=== PATIENT | male | born 1935 | race Caucasian/White ===

== ENCOUNTER 2022-01-31 04:13 | Day surgery (SDC) | payer OTHER ==
[2022-01-27 15:50] VITALS: BMI 25.8
[2022-01-31] MEDS ORDERED: MIDAZOLAM HCL 2 MG/2 ML SINGLE DOSE VIAL ONE ×2 (07:48)
[2022-01-31 11:01] VITALS: BP 126/77; PULSE 66; TEMP 97.9
== END 2022-01-31 11:00 | disposition home or self-care (01) ==
LOC: JASU-SURG 04:13
PROVIDERS: ATTEND Urology
PROC: 0TF3XZZ Fragmentation in Right Kidney Pelvis, External Approach (ICD-10-PCS; principal; 2022-01-31 08:00)
DX: N20.0 Calculus of kidney (principal)

== ENCOUNTER 2022-06-06 03:52 | Day surgery (SDC) | payer OTHER ==
[2022-06-02 11:21] VITALS: BMI 25.5
[2022-06-06] MEDS ORDERED: MIDAZOLAM HCL 2 MG/2 ML SINGLE DOSE VIAL ONE (08:40)
[2022-06-06 09:35] VITALS: RESP 18; TEMP 97.9
[2022-06-06] MEDS ORDERED: ONDANSETRON 4 MG/2 ML VIAL IVPUSH PRN (09:48)
[2022-06-06] MEDS ORDERED: oxyCODONE HCL 5 MG TABLET PO PRN (09:48)
[2022-06-06] MEDS ORDERED: ACETAMINOPHEN 325 MG TABLET (FP) PO PRN (09:48)
[2022-06-06 09:59] VITALS: BP 132/79; PULSE 66
[2022-06-06] MEDS ORDERED: LACTATED RINGERS SOLUTION 1,000 ML IV SCH (10:00)
== END 2022-06-06 10:06 | disposition home or self-care (01) ==
LOC: JASU-SURG 03:52
PROVIDERS: ATTEND Urology
PROC: 0TF4XZZ Fragmentation in Left Kidney Pelvis, External Approach (ICD-10-PCS; principal; 2022-06-06 08:30)
DX: N20.0 Calculus of kidney (principal)

== ENCOUNTER 2024-01-01 04:10 | Day surgery (SDC) | payer OTHER ==
[2023-12-25 14:43] VITALS: BMI 24.9
[2024-01-01 06:26] VITALS: RESP 18
[2024-01-01] MEDS ORDERED: MIDAZOLAM HCL 2 MG/2 ML SINGLE DOSE VIAL ONE (08:04)
[2024-01-01] MEDS ORDERED: ONDANSETRON 4 MG/2 ML VIAL ONE (08:23)
[2024-01-01 09:46] VITALS: BP 127/72; PULSE 62; TEMP 98.3
== END 2024-01-01 09:20 | disposition home or self-care (01) ==
LOC: JASU-SURG 04:10
PROVIDERS: ATTEND Urology
PROC: 0TF3XZZ Fragmentation in Right Kidney Pelvis, External Approach (ICD-10-PCS; principal; 2024-01-01 08:00)
DX: N20.0 Calculus of kidney (principal)